=== PATIENT | female | born 1985 | race Caucasian/White ===

== ENCOUNTER 2019-08-04 21:28 | Emergency (ER) | payer MEDICAID ==
[~2019-08-04] VITALS: Ht 152.4 cm; Wt 55.1 kg
[2019-08-04 21:38] VITALS: Ht 152.4 cm; Wt 55.1 kg
[2019-08-04 23:45] LABS: BASOPHIL % 0.5 % (0-2); PLATELET COUNT 244 x10^3mcL (130-400); RED CELL DISTRIBUTION WIDTH 13.2 % (11.5-14.5)
[2019-08-04 23:49] LABS: CARBON DIOXIDE 27.5 mmol/L (21-32); CHLORIDE SERUM 103 mmol/L (98-107); CREATININE SERUM 0.6 mg/dL (0.6-1.0); GFR1 > 60 mL/min; GLUCOSE SERUM 88 mg/dL (74-106); POTASSIUM SERUM 3.7 mmol/L (3.5-5.1); SODIUM SERUM 138 mmol/L (136-145)
[2019-08-05] LABS: ALBUMIN 3.5 g/dL (3.4-5.0); ALKALINE PHOSPHATASE 65 U/L (46-116); ALT/SGPT 18 U/L (14-59); AST/SGOT 11 U/L (15-37); BILIRUBIN TOTAL 0.2 mg/dL (0.20-1.00); HDL CHOLESTEROL 42 mg/dL (40-60); LIPASE 141 IU/L (73-393); TOTAL PROTEIN, SERUM 7.1 g/dL (6.4-8.2); TRIGLYCERIDES 67 mg/dL (<150)
[2019-08-05 00:01] LABS: CHOLESTEROL 125 mg/dL (<200)
[2019-08-05 00:35] VITALS: BP 110/65
== END 2019-08-05 00:35 | disposition home or self-care (01) ==
LOC: ED 21:28
PROVIDERS: Specialist
DX: G43.909 Migraine, unspecified, not intractable, without status migrainosus (principal); R07.89 Other chest pain; F43.9 Reaction to severe stress, unspecified; M25.512 Pain in left shoulder
CPT/HCPCS: 36415; 83880; J1885; Q0092

== ENCOUNTER 2019-10-27 21:52 | Emergency (ER) | payer MEDICAID ==
[~2019-10-27] VITALS: Ht 152.4 cm; Wt 53.5 kg
[2019-10-27 22:05] VITALS: Ht 152.4 cm; Wt 53.5 kg
[2019-10-28 03:16] VITALS: BP 120/70
== END 2019-10-28 01:30 | disposition home or self-care (01) ==
LOC: ED 21:52
DX: F41.9 Anxiety disorder, unspecified (principal); G43.909 Migraine, unspecified, not intractable, without status migrainosus; S60.221A Contusion of right hand, initial encounter; Y04.2XXA Assault by strike against or bumped into by another person, initial encounter; Y93.89 Activity, other specified; Y92.89 Other specified places as the place of occurrence of the external cause; Y99.8 Other external cause status

== ENCOUNTER 2020-01-30 11:00 | Emergency (ER) | payer MEDICAID ==
[~2020-01-30] VITALS: Ht 152.4 cm; Wt 52.2 kg
[2020-01-30 12:06] VITALS: Ht 152.4 cm; Wt 52.2 kg
[2020-01-30 13:59] VITALS: BP 100/67
== END 2020-01-30 13:59 | disposition home or self-care (01) ==
LOC: ED 11:00
DX: S83.92XA Sprain of unspecified site of left knee, initial encounter (principal); W01.0XXA Fall on same level from slipping, tripping and stumbling without subsequent striking against object, initial encounter; Y93.89 Activity, other specified; Y92.89 Other specified places as the place of occurrence of the external cause; Y99.8 Other external cause status